=== PATIENT | female | born 1980 | race Caucasian/White ===

== ENCOUNTER 2016-08-21 22:16 | Emergency (ER) | payer OTHER ==
[~2016-08-21] VITALS: Ht 170.2 cm; Wt 67.8 kg
[~2016-08-21 22:16] MED LIST: NOHOMEMEDS; NORCO 5/3251 TABLET PO; SEROQUEL50 MG PO; TORADOL10 MG PO; XANAX PO
[2016-08-21] MEDS ORDERED: TYLENOL EXTRA500 MG PO (22:42)
[2016-08-22] MEDS ORDERED: KEFLEX500 MG PO (00:50)
[2016-08-22] MEDS ORDERED: NAPROSYN500 MG PO (01:03)
[2016-08-22 01:08] VITALS: BP 134/89
== END 2016-08-22 01:09 | disposition home or self-care (01) ==
LOC: EME 22:16
DX: S02.82XA Fracture of other specified skull and facial bones, left side, initial encounter for closed fracture (principal); S00.12XA Contusion of left eyelid and periocular area, initial encounter; S06.9X9A Unspecified intracranial injury with loss of consciousness of unspecified duration, initial encounter; M25.431 Effusion, right wrist; M25.531 Pain in right wrist; Y04.2XXA Assault by strike against or bumped into by another person, initial encounter; F17.200 Nicotine dependence, unspecified, uncomplicated
CPT/HCPCS: 70450; 70486; 73110; 99281; 99284

== ENCOUNTER 2017-03-20 21:28 | Inpatient (IN) | payer OTHER ==
[~2017-03-20] VITALS: Ht 170.2 cm; Wt 82.7 kg
[~2017-03-20 21:28] MED LIST changes: +KEFLEX500 MG PO; +NAPROSYN500 MG PO; +TYLENOL EXTRA500 MG PO
[2017-03-20 22:27] LABS: EOSINOPHIL (%) 0.4 % (0-5); EOSINOPHIL COUNT 0.1 K/uL (0-0.3); HEMATOCRIT 42.6 % (36.0-46.0); IMMATURE GRANULOCYTE COUNT 0.1 K/uL; INSTRUMENT ABS NEUTROPHIL CT 11.1 K/uL; LYMPHOCYTE COUNT 1.4 K/uL (1.0-2.8); MCH 20.7 PG (29.0-34.0); MCHC 30.3 G/DL (30.0-36.0); MCV 68.3 FL (83-99); MEAN PLAT.VOLUME 10.1 uM^3 (9.5-12.4); MONOCYTE (%) 8.9 % (3-12); MONOCYTE COUNT 1.3 K/uL (0-0.8); NEUTROPHIL (%) 79.3 % (45-76); NEUTROPHIL COUNT 11.1 K/uL (1.8-6.4); PLATELET COUNT 255 K/uL (156-360); RBC DIS.WIDTH-CV 13.8 % (11.8-14.6); RBC DIS.WIDTH-SD 32.8 % (39-53); RED BLOOD COUNT 6.24 M/uL (3.80-5.20)
[2017-03-20 22:31] LABS: TROP-I INTERPRETATION NEGATIVE; TROPONIN-I < 0.01 ng/mL (0.0-0.30)
[2017-03-20 22:42] LABS: CHLORIDE 112 mEq/L (99-109); POTASSIUM 3.6 mEq/L (3.7-5.4); SODIUM 144 mEq/L (136-147)
[2017-03-20 22:44] LABS: GLUCOSE 102 mg/dL (70-99)
[2017-03-20 22:45] LABS: ANION GAP 17 MEQ/L (2-14)
[2017-03-20 22:46] LABS: TOTAL BILIRUBIN 0.2 mg/dL (0.0-1.0)
[2017-03-20 22:47] LABS: SERUM ETHYL ALCOHOL 190 mg/dL
[2017-03-20 22:48] LABS: ALKALINE PHOSPHATASE 61 IU/L (3-129); GFR ESTIMATE (CALCULATED) > 59 mL/min/
[2017-03-20 22:50] LABS: UREA NITROGEN (BUN) 13 mg/dL (9-23)
[2017-03-20 22:51] LABS: SALICYLATE < 5.0 MG/DL (15-30)
[2017-03-20 22:58] LABS: QUANTITATIVE HCG < 4.0 MIU/ML
[2017-03-20 23:31] LABS: BASE EXCESS -4.4 mEq/L (-3 to +3); BICARBONATE 22.9 mEq/L (22-26); CARBOXY HGB 5.4 % (0-5); COMMENTS - BLOOD GASES A+C+; DEVICE NC; METHEMOGLOBIN 0.6 % (0-1.5); O2 FLOW 2 L/MIN; PCO2 51 mm Hg (35-45); PO2 93 mm Hg (80-100); SITE LR; TOTAL RESP RATE 12 resp/min
[2017-03-20 23:32] LABS: pH 7.26 (7.35-7.45)
[2017-03-21] VITALS (13 sets, daily range): BP systolic 87–103; BP diastolic 37–68
[2017-03-21 02:29] LABS: EOSINOPHIL (%) 0.3 % (0-5); HEMATOCRIT 34.4 % (36.0-46.0); IMMATURE GRANULOCYTE (%) 0.8 % (0.0-0.7); IMMATURE GRANULOCYTE COUNT 0.1 K/uL; INSTRUMENT ABS NEUTROPHIL CT 7.9 K/uL; LYMPHOCYTE COUNT 1.9 K/uL (1.0-2.8); MCH 20.5 PG (29.0-34.0); MCHC 30.2 G/DL (30.0-36.0); MCV 67.9 FL (83-99); MEAN PLAT.VOLUME 9.7 uM^3 (9.5-12.4); MONOCYTE (%) 5.8 % (3-12); MONOCYTE COUNT 0.6 K/uL (0-0.8); NEUTROPHIL (%) 75.1 % (45-76); NEUTROPHIL COUNT 7.9 K/uL (1.8-6.4); PLATELET COUNT 211 K/uL (156-360); RBC DIS.WIDTH-SD 33.3 % (39-53); WHITE BLOOD COUNT 10.5 K/uL (4.1-10.2)
[2017-03-21 02:30] LABS: RED BLOOD COUNT 5.07 M/uL (3.80-5.20)
[2017-03-21 02:31] LABS: CHLORIDE 114 mEq/L (99-109); POTASSIUM 3.9 mEq/L (3.7-5.4); SODIUM 142 mEq/L (136-147)
[2017-03-21 02:33] LABS: GLUCOSE 87 mg/dL (70-99)
[2017-03-21 02:35] LABS: ANION GAP 8 MEQ/L (2-14)
[2017-03-21 02:37] LABS: ALKALINE PHOSPHATASE 44 IU/L (3-129); GFR ESTIMATE (CALCULATED) > 59 mL/min/
[2017-03-21 02:38] LABS: UREA NITROGEN (BUN) 12 mg/dL (9-23)
[2017-03-21 02:43] LABS: TOTAL BILIRUBIN 0.1 mg/dL (0.0-1.0)
[2017-03-21 03:46] LABS: ADD MIUA? YES; BILIRUBIN NEGATIVE; BLOOD NEGATIVE; COLOR YELLOW ((YELLOW)); GLUCOSE (STRIP) NEGATIVE; KETONES NEGATIVE; LEUKOCYTES NEGATIVE; NITRITE NEGATIVE; PROTEIN (STRIP) NEGATIVE; UROBILINOGEN 0.2 MG/DL (0.2-1.0)
[2017-03-21 03:52] LABS: METH RESISTANT S AUREUS PCR NEGATIVE (NEGATIVE)
[2017-03-21 03:55] LABS: PROBE CHECK PASS; SPECIMEN PROCESSING CONTROL PASS
[2017-03-21 04:09] LABS: BACTERIA NONE SEEN /HPF; EPITHELIAL CELLS RARE /HPF; MUCUS TRACE /LPF; RED BLOOD CELLS NONE SEEN /HPF (0-5); UCUL ADDED? NO; WHITE BLOOD CELLS NONE SEEN /HPF (0-5)
[2017-03-21 06:13] LABS: AMPHETAMINES QUANT VALUE 0 NG/ML; BARBITUATES QUANT VALUE 0 NG/ML; BENZODIAZEPINES QUANT VALUE 0 NG/ML; BENZODIAZEPINES, URINE SCREEN Negative (200 ng/mL); MARIJUANA QUANT VALUE 0 NG/ML; OPIATES QUANTITATIVE VALUE 0 NG/ML; PHENCYCLIDINE QUANT VALUE 0 NG/ML
[2017-03-22 06:43] LABS: MCH 21.3 PG (29.0-34.0); MCHC 30.9 G/DL (30.0-36.0); MCV 68.9 FL (83-99); MEAN PLAT.VOLUME 11.4 uM^3 (9.5-12.4); PLATELET COUNT 184 K/uL (156-360); RBC DIS.WIDTH-SD 34.2 % (39-53); RED BLOOD COUNT 4.79 M/uL (3.80-5.20); WHITE BLOOD COUNT 6.9 K/uL (4.1-10.2)
[2017-03-22 06:47] LABS: ALKALINE PHOSPHATASE 34 IU/L (3-129); ANION GAP 5 MEQ/L (2-14); CHLORIDE 110 MEQ/L (99-109); GFR ESTIMATE (CALCULATED) > 59 mL/min/; GLUCOSE 78 mg/dL (70-99); POTASSIUM 3.4 MEQ/L (3.7-5.4); SAMPLE HEMOLYSIS CHECK 0; SAMPLE ICTERIC CHECK 0; SAMPLE LIPEMIA CHECK 0; SODIUM 141 MEQ/L (136-147); TOTAL BILIRUBIN 0.4 MG/DL (0.0-1.0); UREA NITROGEN (BUN) 6 mg/dL (9-23)
[2017-03-22 08:00] VITALS: BP 100/65
[2017-03-22 10:00] VITALS: BP 106/74
[2017-03-22 14:00] VITALS: BP 123/80
== END 2017-03-22 18:22 | DRG 917 ==
LOC: EME → EDBD 21:28 → 4WEST 03-21 00:42 → EDOF 03-21 00:42 → 4WEST 03-21 00:42 → ENRESERV 03-21 00:43 → 4WEST 03-21 02:27
PROVIDERS: Emergency Medicine; Specialist
DX: T40.601A Poisoning by unspecified narcotics, accidental (unintentional), initial encounter (principal); J96.02 Acute respiratory failure with hypercapnia; F10.121 Alcohol abuse with intoxication delirium; Y90.6 Blood alcohol level of 120-199 mg/100 ml; E87.2 Acidosis; R65.10 Systemic inflammatory response syndrome (SIRS) of non-infectious origin without acute organ dysfunction; D72.829 Elevated white blood cell count, unspecified; R06.81 Apnea, not elsewhere classified; R68.0 Hypothermia, not associated with low environmental temperature; F20.9 Schizophrenia, unspecified; F32.9 Major depressive disorder, single episode, unspecified; F40.01 Agoraphobia with panic disorder; F43.10 Post-traumatic stress disorder, unspecified; F43.20 Adjustment disorder, unspecified; F40.10 Social phobia, unspecified; G43.909 Migraine, unspecified, not intractable, without status migrainosus; R01.1 Cardiac murmur, unspecified; F17.200 Nicotine dependence, unspecified, uncomplicated; Z91.410 Personal history of adult physical and sexual abuse
CPT/HCPCS: 36600; 71010; 80053; 80306 90; 81003; 82803; 83605; 84484; 84702; 85025; 85027; 85730; 87040; 87641; 93005; 94799; 99281; 99285; G0480; J1650; J2310; J2405; J2543; J3370; J7030; J7040; J7042; J7050

== ENCOUNTER 2017-03-22 17:52 | Inpatient (IN) | payer OTHER ==
[~2017-03-22] VITALS: Ht 170.2 cm; Wt 84.4 kg
[2017-03-22 18:35] VITALS: BP 122/62
[2017-03-22 18:39] VITALS: BP 122/62
[2017-03-23 07:21] VITALS: BP 132/62
[2017-03-23 15:30] VITALS: BP 114/78
[2017-03-24 07:37] VITALS: BP 123/60
[2017-03-24 15:34] VITALS: BP 128/66
[2017-03-25 07:45] VITALS: BP 115/72
[2017-03-25] MEDS ORDERED: EFFEXOR XR37.5 MG PO (10:03)
[2017-03-25] MEDS ORDERED: GEODON40 MG PO (10:03)
== END 2017-03-25 13:11 | disposition home or self-care (01) | DRG 882 ==
LOC: 1WEST 17:52 → ENRESERV 17:53 → 1WEST 18:22
DX: F43.10 Post-traumatic stress disorder, unspecified (principal); F10.20 Alcohol dependence, uncomplicated; F32.9 Major depressive disorder, single episode, unspecified; F40.01 Agoraphobia with panic disorder; Z81.8 Family history of other mental and behavioral disorders; Z91.410 Personal history of adult physical and sexual abuse